=== PATIENT | female | born 1970 | race Caucasian/White ===

== ENCOUNTER 2022-07-09 11:30 | Outpatient (CLI) | payer BC, SELFPAY ==
--- NOTE | ~2022-07-09 | XR_ITS ---
Left foot Technique: AP and lateral views were obtained. Clinical History: Rheumatoid arthritis Findings: No acute fracture or dislocation is seen. Osseous alignment is anatomic. Joint spaces are p reserved without erosive or degenerative change. Soft tissues are unremarkable. Impression: Unremarkable left foot radiographs. Reviewed, dictated and finalized at [facility]. E RETURNER Impression: Unremarkable left foot radiographs.
--- NOTE | ~2022-07-09 | XR_ITS ---
Right foot Technique: AP and lateral views were obtained. Clinical History: Rheumatoid arthritis Findings: No acute fracture or dislocation is seen. Osseous alignment is anatomic. Small plantar calc aneal spur noted. Joint spaces are preserved without erosive or degenerative change. Soft tissues are unremarkable. Impression: Small plantar calcaneal spur, otherwise unremarkable exam. Reviewed, dictated and finalized at location . SPECIALIST Impression: Small plantar calcaneal spur, otherwise unremarkable exam.
--- NOTE | ~2022-07-09 | XR_ITS ---
Lumbosacral Spine: AP, oblique, and lateral views Clinical History: Pain Findings: The normal lordotic curve is maintained. The vertebral bodies and posterior elements are i ntact. The intervertebral disc spaces are preserved. The sacroiliac joints are normally outlined. Impression: No significant abnormality. Reviewed, dictated and finalized at [facility]. ER HEAD Impression: No significant abnormality.
--- NOTE | ~2022-07-09 | XR_ITS ---
Bilateral Hands Technique: Bilateral PA, oblique, and lateral views, and ball-catcher's view were obtained. Clinical History: Rheumatoid arthritis Findings: No acute fracture or dislocation is seen. Osseous alignment is anatomic. Joint spaces are p reserved. Soft tissues are unremarkable. Impression: Unremarkable bilateral hand radiographs. Reviewed, dictated and finalized at [facility]. PING SUPPORT Impression: Unremarkable bilateral hand radiographs.
--- NOTE | ~2022-07-09 | XR_ITS ---
AP and lateral views of the bilateral SI joints CLINICAL HISTORY: Rheumatoid arthritis FINDINGS: SI joints are unremarkable. No sclerosis, erosive change, or degenerative change. Bilateral hip joints are preserved. Soft tissues are unremarkable. IMPRESSION: Unremarkable exam. Reviewed, dictated and finalized at location M. UCT SAFETY COORDINATOR IMPRESSION: Unremarkable exam.
== END 2022-07-09 11:31 ==
PROVIDERS: PCP Internal Medicine; Visit Provider Internal Medicine
DX: M05.79 Rheumatoid arthritis with rheumatoid factor of multiple sites without organ or systems involvement (principal); M77.31 Calcaneal spur, right foot; K21.9 Gastro-esophageal reflux disease without esophagitis; K58.9 Irritable bowel syndrome, unspecified; Z71.89 Other specified counseling; Z79.899 Other long term (current) drug therapy
CPT/HCPCS: 72110; 72202; 73130; 73620